=== PATIENT | male | born 1940 | race African-American/Black ===

== ENCOUNTER 2018-03-27 14:21 | Inpatient (IN) | payer OTHER ==
[~2018-03-27] VITALS: Ht 195.6 cm; Wt 81.6 kg
[2018-03-27 16:27] LABS: BASOPHILS % 0.3 % (0.0-2.0); EOSINOPHILS % 0.8 % (0.0-5.0); HEMATOCRIT. 40.7 % (42.0-52.0); HEMOGLOBIN. 13.5 g/dL (14.0-18.0); MEAN CORPUSCULAR HEMOGLOBIN 33.4 pg (28.0-32.0); MEAN CORPUSCULAR VOLUME 100.3 fL (80.0-94.0); MEAN PLATELET VOLUME 9.9 fl (7.4-10.4); MONOCYTES % 5.6 % (2.0-8.0); NEUTROPHILS % 80.3 % (40.0-76.0); PLATELET 150 x1000/uL (130-400); RED BLOOD CELL COUNT 4.06 mill/uL (4.7-6.1)
[2018-03-27 16:30] LABS: CHLORIDE 109 mEq/L (98-107)
[2018-03-27 17:05] LABS: CLARITY URINE TURBID (CLEAR); COLOR URINE YELLOW (YELLOW); KETONES URINE NEGATIVE (NEGATIVE); LEUKOCYTE ESTERASE URINE NEGATIVE (NEGATIVE); NITRITE URINE NEGATIVE (NEGATIVE); OCCULT BLOOD URINE NEGATIVE (NEGATIVE); PH URINE >=9.0 (4.5-8.0); PROTEIN URINE NEGATIVE (NEGATIVE); SPECIFIC GRAVITY URINE 1.016 (1.005-1.030)
[2018-03-27] MEDS ORDERED: NA PHOS,M-B/NA PHOS,DI-BA ENEMA 118ML PR PRN (17:30)
[2018-03-27] MEDS ORDERED: CLONIDINE 0.1MG TABLET PO PRN (17:30)
[2018-03-27] MEDS ORDERED: GUAIFENESIN 200MG/10ML SUGAR FREE UDC PO PRN (17:30)
[2018-03-27] MEDS ORDERED: ACETAMINOPHEN 325MG TABLET PO PRN (17:30)
[2018-03-27] MEDS ORDERED: DOCUSATE SODIUM 100MG CAPSULE PO PRN (17:30)
[2018-03-27] MEDS ORDERED: MAGNESIUM/ALUMINUM HYDROXIDE/SIMETHICONE 30ML UDC PO PRN (17:30)
[2018-03-27] MEDS ORDERED: KETOROLAC 15MG/ML VIAL IV PRN (17:30)
[2018-03-27] MEDS ORDERED: NITROGLYCERIN 0.4MG TABLET SL SL PRN (17:30)
[2018-03-27] MEDS ORDERED: MORPHINE SULFATE 4 MG/ML CPJ (NOT FOR IM USE) IV PRN (17:30)
[2018-03-27] MEDS ORDERED: DIPHENHYDRAMINE 50MG/ML VIAL IV PRN (17:30)
[2018-03-27] MEDS ORDERED: IPRATROPIUM/ALBUTEROL 0.5-3(2.5)MG/3ML NEB INH PRN (17:30)
[2018-03-27] MEDS ORDERED: ONDANSETRON HCL 4MG/2ML VIAL IV PRN (21:00)
[2018-03-27] MEDS ORDERED: ZOLPIDEM TARTRATE 5MG TABLET PO PRN (23:00)
[2018-03-28] VITALS: BP 141/81
[2018-03-28] MEDS: DEXT 5%/0.45% NACL 1000ML 1,000 ML IV SCH ×3 (00:44→23:26)
[2018-03-28 04:00] VITALS: BP 136/86
[2018-03-28 05:47] VITALS: BP 137/80
[2018-03-28] MEDS ORDERED: BRIN8DRO EACHEYE (06:08)
[2018-03-28] MEDS ORDERED: BIMA2.5D4 EACHEYE (06:08)
[2018-03-28] MEDS ORDERED: ACET250T3 PO (06:08)
[2018-03-28] MEDS ORDERED: TIMO5DRO32 EACHEYE (06:08)
[2018-03-28] MEDS: ENOXAPARIN 40MG/0.4ML SYR SUBCUT SCH ×2 (06:48→21:45)
[2018-03-28] MEDS: FAMOTIDINE 20MG TABLET PO SCH ×3 (06:48→21:45)
[2018-03-28 08:00] VITALS: BP 133/65
[2018-03-28] MEDS ORDERED: DIATR MEGLU/DIATRIZOATE SOLN 120ML ONE (10:36)
[2018-03-28] MEDS: TIMOLOL MALEATE 0.5% OPHTH DROPS 5ML EACHEYE SCH (12:49)
[2018-03-28] MEDS: SIMBRINZA EACHEYE SCH ×2 (12:50→16:26)
[2018-03-28 16:00] VITALS: BP 138/66
[2018-03-28 20:00] VITALS: BP 107/60
[2018-03-28] MEDS: [UNRECOGNIZED DRUG - OTHER] EACHEYE SCH (21:46)
[2018-03-29] VITALS (8 sets, daily range): BP systolic 113–182; BP diastolic 51–96
[2018-03-29] MEDS: LORAZEPAM 0.5MG TABLET PO PRN ×2 (02:37→09:16)
[2018-03-29] MEDS: FAMOTIDINE 20MG TABLET PO SCH ×2 (09:16→21:28)
[2018-03-29] MEDS: SIMBRINZA EACHEYE SCH ×3 (09:16→16:27)
[2018-03-29] MEDS: TIMOLOL MALEATE 0.5% OPHTH DROPS 5ML EACHEYE SCH (09:16)
[2018-03-29] MEDS: [UNRECOGNIZED DRUG - OTHER] EACHEYE SCH (21:29)
[2018-03-29] MEDS: ENOXAPARIN 40MG/0.4ML SYR SUBCUT SCH (21:29)
[2018-03-30] VITALS: BP 148/59
[2018-03-30 04:00] VITALS: BP 131/78
[2018-03-30 08:00] VITALS: BP 147/66
[2018-03-30] MEDS: FAMOTIDINE 20MG TABLET PO SCH (09:14)
[2018-03-30] MEDS: SIMBRINZA EACHEYE SCH ×2 (09:14→17:37)
[2018-03-30] MEDS: TIMOLOL MALEATE 0.5% OPHTH DROPS 5ML EACHEYE SCH (09:14)
[2018-03-30 12:00] VITALS: BP 141/61
[2018-03-30 16:00] VITALS: BP 143/85
== END 2018-03-30 18:00 | disposition home health service (06) | DRG 390 ==
LOC: ER 15:00 → 6EST 17:05 → EDBEDREQTM 17:07 → EDBEDREQ 17:07 → SUPCPDRO 18:44 → ENRESERV 18:54 → 6EST 03-28 00:02
PROVIDERS: ADMIT Internal Medicine; ATTEND Internal Medicine
DX: K56.600 Partial intestinal obstruction, unspecified as to cause (principal); I10 Essential (primary) hypertension; Z53.29 Procedure and treatment not carried out because of patient's decision for other reasons
CPT/HCPCS: 36415; 74176; 74250; 80053; 80061; 81003; 83036; 83690; 85025; 85610; 93005; 93970; 99285; A6261; J1650; Q9963

== ENCOUNTER 2019-01-24 17:02 | Emergency (ER) | payer OTHER ==
[~2019-01-24] VITALS: Ht 188 cm; Wt 89.0 kg
[~2019-01-24 17:02] MED LIST: ACET250T3 PO; BIMA2.5D4 EACHEYE; BRIN8DRO EACHEYE; TIMO5DRO32 EACHEYE
[2019-01-24 17:19] VITALS: BP 180/91
== END 2019-01-25 00:09 | disposition left against medical advice (07) ==
LOC: ER 20:40
DX: R51 Headache (principal); H57.10 Ocular pain, unspecified eye; Z53.21 Procedure and treatment not carried out due to patient leaving prior to being seen by health care provider